=== PATIENT | female | born 1950 | race American Indian/Alaskan Native ===

== ENCOUNTER 2019-01-29 12:09 | Outpatient (CLI) | payer MEDICARE ==
--- NOTE | 2019-01-29 13:07 | Mammography Report ---
DEXA BONE DENSITY SCAN INDICATION: POSTMENOPAUSAL STATE/ AT RISK FOR OSTEOPOROSIS. COMPARISON: None available. LUMBAR SPINE (L1-L4): Bone mineral density (BMD) is 1.471 g/cm2. T-score is +2.9 (standard deviations of Young Adult mean). Z-score is +5.0 (standard deviations of Age Matched mean). LEFT FEMORAL NECK: Bone mineral density (BMD) is 1.048 g/cm2. T-score is +0.7 (standard deviations of Young Adult mean). Z-score is +2.0 (standard deviations of Age Matched mean). IMPRESSION: 1. WHO Classification: Normal bone density. Fracture Risk: Not Increased. Signer Name: Catarino Johnson MD Signed: 01/29/2019 1:03 PM Workstation Name: [id number]
== END 2019-01-29 12:10 | disposition home or self-care (01) ==
LOC: SPVWC 12:09
PROVIDERS: ATTEND Family Medicine
DX: Z78.0 Asymptomatic menopausal state (principal); Z91.89 Other specified personal risk factors, not elsewhere classified
CPT/HCPCS: 77080

== ENCOUNTER 2019-06-06 11:07 | Outpatient (CLI) | payer MEDICARE, OTHER ==
--- NOTE | 2019-06-09 15:02 | Mammography Report ---
DIGITAL SCREENING MAMMOGRAM WITH CAD, 06/06/2019 INDICATION: Routine screening mammography. TECHNIQUE: Digital bilateral 2D mammography was obtained in the craniocaudal and mediolateral obliq ue projections. This examination was interpreted with the benefit of Computer-Aided Detection analysi s. COMPARISON: None available. However, she indicated that she had a previous mammogram at [facility]. FINDINGS: Breast Density: There are scattered areas of fibroglandular density. There is no evidence of dominant mass, suspicious calcifications or architectural distortion in eithe r breast. A left outer benign intraparenchymal lymph node and a probable right outer benign intrapare nchymal lymph node. IMPRESSION: Comparison with a previous mammogram is recommended. We will attempt to obtain a prior ma mmogram for comparison. If we do not obtain a prior mammogram within 30 days, a revised report will b e issued recommending a recall for additional imaging. Please be advised that the patient should not schedule an appointment for return until adequate time (at least 2 weeks) has passed for us to obtain the prior mammogram. BI-RADS CATEGORY 0: INCOMPLETE - NEED ADDITIONAL IMAGING EVALUATION AND/OR PRIOR MAMMOGRAMS FOR COMP ARISON Information is entered into a reminder system for a target due date for the next mammogram. The resul ts and recommendations were sent to the patient by mail. Follow up recommendation: Obtain prior study for comparison Category 0: Incomplete. Needs additional imaging evaluation and/or prior mammograms for comparison. A "normal" or negative report should not discourage follow up or biopsy of a clinically significant f inding. A written summary of these findings will be mailed to the patient. The patient will be entered into a mammography reporting system which will generate a reminder letter for the patient's next appointmen t at the appropriate interval. The [employer] recommends yearly mammograms starting at age 40 and continuing as l keri as a woman is in good health. Breast MRI is recommended for women with an approximate 20-25% or greater lifetime risk of breast cancer, including women with a strong family history of breast or ova nathaniel cancer or who have been treated for Hodgkin's disease. Signer Name: Catarino Johnson MD Signed: 06/09/2019 2:58 PM Workstation Name: [id number]
== END 2019-06-06 11:08 | disposition home or self-care (01) ==
LOC: SPVWC 11:07
PROVIDERS: ATTEND Family Medicine
DX: Z12.31 Encounter for screening mammogram for malignant neoplasm of breast (principal)
CPT/HCPCS: 77067